=== PATIENT | male | born 1985 | race African-American/Black ===

== ENCOUNTER 2020-07-07 20:52 | Inpatient (IN) | payer MEDICAID ==
[~2020-07-07] VITALS: Ht 195.6 cm; Wt 80.0 kg
--- NOTE | 2020-07-07 21:17 | NUR ---
PT BIB EMS FOR SOB, WEAKNESS, AND ABD PAIN. PT STATES FOR THE PAST 3-4 WEEKS HAS BEEN INCREASINGLY WEEK AND UNABLE TO GET UP OFF OF THE COUCH. PT REPORTS USING METH EVERYDAY "USUALLY THAT HELPS ME FEEL BETTER BUT IT HASNT BEEN WORKING". PT ALSO REPORTS THAT HE IS SUPPOSED TO BE TAKING COUMADIN BUT NOT SURE WHAT FOR. HE SAYS HIS COUMADIN WAS STOLEN A COUPLE WEEKS AGO. EKG COMPLETE. MD IS BEDSIDE FOR ASSESSMENT. PT CONNECTED TO ALL MONITORING EQUIPMENT
[2020-07-07] MEDS ORDERED: ONDANSETRON 2MG/ML, 2ML ONE (21:22)
[2020-07-07] MEDS ORDERED: MORPHINE SULFATE 4 MG/ML, 1ML ONE ×2 (21:22→23:48)
[2020-07-07] MEDS ORDERED: SODIUM CHLORIDE FLUSH 10ML SYR IVF ONE (21:30)
[2020-07-07] MEDS ORDERED: ONDANSETRON 2MG/ML, 2ML IVPush ONE (21:30)
[2020-07-07] MEDS ORDERED: LORazepam 2 MG/ML, 1ML IVPush ONE (21:30)
[2020-07-07] MEDS ORDERED: SODIUM CHLORIDE 0.9% 1,000ML IVBOLUS ONE ×2 (21:30→22:00)
[2020-07-07] MEDS: MORPHINE SULFATE 4 MG/ML, 1ML IVPush PRN ×2 (21:50→23:55)
[2020-07-07 21:51] LABS: BASOPHILS % (AUTO) 0 % (0-1); EOSINOPHILS % (AUTO) 0 % (1-7); LYMPHOCYTES % (AUTO) 12 % (22-44); MEAN CORPUSCULAR HEMOGLOBIN 30.5 pg (27.5-34.5); MEAN CORPUSCULAR HGB CONC 31.7 g/dL (33.2-36.2); MEAN PLATELET VOLUME 8.2 fL (7.4-10.4); MONOCYTES % (AUTO) 5 % (2-9); NEUTROPHILS % (AUTO) 82 % (42-75); PLATELET COUNT 235 x10^3/uL (130-400); RED BLOOD COUNT 4.14 x10^6/uL (4.38-5.82)
[2020-07-07 21:52] LABS: MD NO
[2020-07-07] MEDS ORDERED: CEFTRIAXONE PMX 1GM/50ML 50 ML IVPB ONE (22:00)
[2020-07-07] MEDS ORDERED: AZITHROMYCIN 500 MG in SODIUM CHLORIDE 0.9% 250 ML IV ONE (22:00)
[2020-07-07 22:04] LABS: ALANINE AMINOTRANSFERASE 22 U/L (12-78); ALBUMIN 1.9 g/dL (3.4-5.0); ANION GAP 9 mmol/L (5-15); CALCIUM 8.5 mg/dL (8.5-10.1); CHLORIDE 101 mmol/L (98-107); INTERNATIONAL NORMALIZED RATIO 1.44 (0.93-1.1); PROTHROMBIN TIME 15.3 Seconds (9.6-11.5)
[2020-07-07 22:09] LABS: ALKALINE PHOSPHATASE 88 U/L (45-117); BILIRUBIN,TOTAL 4.5 mg/dL (0.2-1.0); TOTAL PROTEIN 7.6 g/dL (6.4-8.2)
[2020-07-07] MEDS ORDERED: OMNIPAQUE 350 MG/ML, 100ML BOTTLE ONE (22:43)
[2020-07-07] MEDS ORDERED: CEFTRIAXONE PMX 1GM/50ML 50 ML ONE (22:48)
[2020-07-07] MEDS ORDERED: ASPIRIN 325 MG TABLET ONE (22:58)
[2020-07-07] MEDS ORDERED: ASPIRIN 325 MG TABLET PO ONE (23:00)
[2020-07-07] MEDS ORDERED: FUROSEMIDE 40 MG/4 ML IV ONE (23:30)
[2020-07-07] MEDS ORDERED: HEPARIN 25,000 UNITS/250ML PMX 250 ML IV PRN (23:30)
[2020-07-07] MEDS ORDERED: HEPARIN 5,000 UNITS/ML, 1ML IV ONE (23:30)
--- NOTE | 2020-07-08 00:06 | NUR ---
Pt with sudden and sharp abd pain. Pt with sudden diaphoresis and yelling in pain. Dr Damon to bedside to evaluate patient. Pt remains tachycardic, trending down BP, requiring increased O2. Dr Damon and Dr Johns at bedside to evaluate patient. Dr Damon discussed intubation, central line, and thoracentesis with patient. Pt A&O x 4, in decision making capacity, , and gave verbal consent for procedure. Pt to trauma room, and report given to Adam CONNER for procedure.
[2020-07-08] MEDS ORDERED: PROMETHAZINE 25 MG/ML, 1ML IM PRN (00:30)
[2020-07-08] MEDS ORDERED: ONDANSETRON ODT 4 MG PO PRN (00:30)
[2020-07-08] MEDS ORDERED: hydrALAzine 20 MG/ML, 1ML IVPush PRN (00:30)
[2020-07-08] MEDS ORDERED: morphine SULFATE 10 MG/ML, 1ML IVPush PRN (00:30)
[2020-07-08] MEDS ORDERED: DOCUSATE 100 MG CAPSULE PO PRN (00:30)
[2020-07-08] MEDS ORDERED: POLYETHYLENE GLYCOL 17 GM PACKET PO PRN (00:30)
[2020-07-08] MEDS ORDERED: OXYcodone IR 5MG TABLET PO PRN (00:30)
[2020-07-08] MEDS ORDERED: BISACODYL 10 MG SUPP PR PRN (00:30)
[2020-07-08] MEDS ORDERED: ONDANSETRON 2MG/ML, 2ML IVPush PRN (00:30)
[2020-07-08] MEDS ORDERED: ALTEPLASE 1 ML ONE (00:32)
[2020-07-08] MEDS ORDERED: HEPARIN 5,000 UNITS/ML, 1ML ONE (00:36)
[2020-07-08 00:51] LABS: FREE T4 (FREE THYROXINE) 1.27 ng/dL (0.76-1.46)
--- NOTE | 2020-07-08 00:55 | NUR ---
Late entry (2199) Pt states feeling better after morphine, pain down to 4/10 in abd. Denies feeling nausated. Pt A&O x 4. Pt states no difficulty breathing. Pt remains tachycardic. Will continue to monitor. Sepsis protocol being followed.
[2020-07-08] MEDS ORDERED: EPINEPHRINE 5 MG in SODIUM CHLORIDE 0.9% 245 ML IV PRN (01:00)
--- NOTE | 2020-07-08 01:04 | NUR ---
yaya rn: pt intubated with 8.0 with 26 at the lip, pt coded at 0020 see code sheet. central line placed at 0040, 1L ns infused, muhammad placed and tpa mixed at bs.
[2020-07-08] MEDS ORDERED: CODE BLUE RESPONSE XX ONE ×2 (01:15→02:55)
[2020-07-08] MEDS ORDERED: DOBUTAMINE/D5W PMX 250 MG/250 ML ONE (01:15)
[2020-07-08 01:30] LABS: PH, VENOUS 6.929 pH (7.320-7.420)
[2020-07-08] MEDS ORDERED: DOBUTAMINE/D5W PMX 250 ML IV PRN (01:30)
[2020-07-08] MEDS ORDERED: NOREPINEPHRINE 8 MG in SODIUM CHLORIDE 0.9% 242 ML IV PRN (01:30)
[2020-07-08] MEDS ORDERED: ALTEPLASE 100 MG in BAG 1 EACH IV ONE (01:30)
[2020-07-08 01:45] LABS: ANION GAP 17 mmol/L (5-15); CALCIUM 6.9 mg/dL (8.5-10.1); CHLORIDE 108 mmol/L (98-107)
--- NOTE | 2020-07-08 01:48 | NUR ---
Report to [facility] Glass pipe for drug use, wasted in sharps with valentín garcia. White powdery substance wasted in sharps with [facility]. Pipe in sharps container. One large knife, one pocket knife sent to security for storage. NITIN titus, Fabio titus no U[facility] hospitalist aware.
[2020-07-08 01:50] VITALS: BP 127/89
--- NOTE | 2020-07-08 02:00 | NUR ---
Tx on monitor tech with EMT, RT, RN b/p upon tx 123/82 HR 118, Sinus no ectopy. Remains on no sedation, non responsive.
[2020-07-08] MEDS ORDERED: EPINEPHRINE 10 MG in SODIUM CHLORIDE 0.9% 240 ML IV PRN (02:14)
[2020-07-08] MEDS ORDERED: SODIUM BICARB 8.4%, 50ML SYRINGE ONE (02:35)
[2020-07-08] MEDS ORDERED: VASOPRESSIN 20 UNIT/ML, 1ML ONE (02:55)
[2020-07-08] MEDS ORDERED: FAMOTIDINE 20 MG/2 ML IVPush SCH (09:00)
[2020-07-08] MEDS ORDERED: ATROPINE SYRINGE 0.1 MG/ML, 10ML ONE (10:09)
[2020-07-08] MEDS ORDERED: SODIUM BICARB 7.5%, 50ML SYRINGE ONE (10:09)
[2020-07-08] MEDS ORDERED: EPINEPHRINE SYRINGE 0.1 MG/ML, 10ML ONE (10:09)
[2020-07-08] MEDS ORDERED: ETOMIDATE 20 MG/10 ML ONE (10:12)
[2020-07-08] MEDS ORDERED: PROPOFOL 10 MG/ML, 100ML IV ONE (10:12)
[2020-07-08] MEDS ORDERED: SUCCINYLCHOLINE 20 MG/ML, 10ML ONE (10:12)
[2020-07-08] MEDS ORDERED: ROCURONIUM 10MG/ML,5ML ONE (10:12)
[2020-07-08] MEDS ORDERED: VECURONIUM 10 MG ONE (10:12)
[2020-07-08] MEDS ORDERED: AZITHROMYCIN 500 MG in SODIUM CHLORIDE 0.9% 250 ML IV SCH (21:00)
[2020-07-08] MEDS ORDERED: CEFTRIAXONE PMX 2GM/50ML 50 ML IVPB SCH (21:00)
== END 2020-07-08 05:50 | disposition expired | DRG 917 ==
LOC: ED 21:52 → EDIP 07-08 00:20 → CCU 07-08 02:08
PROVIDERS: ADMIT Internal Medicine; ATTEND Hospitalist
PROC: 5A1935Z Respiratory Ventilation, Less than 24 Consecutive Hours (ICD-10-PCS; principal; 2020-07-08)
PROC: 0BH17EZ Insertion of Endotracheal Airway into Trachea, Via Natural or Artificial Opening (ICD-10-PCS; 2020-07-08)
PROC: 02HV33Z Insertion of Infusion Device into Superior Vena Cava, Percutaneous Approach (ICD-10-PCS; 2020-07-08)
PROC: B548ZZA Ultrasonography of Superior Vena Cava, Guidance (ICD-10-PCS; 2020-07-08)
PROC: 5A12012 Performance of Cardiac Output, Single, Manual (ICD-10-PCS; 2020-07-08)
PROC: 3E03317 Introduction of Other Thrombolytic into Peripheral Vein, Percutaneous Approach (ICD-10-PCS; 2020-07-08)
DX: T43.621A Poisoning by amphetamines, accidental (unintentional), initial encounter (principal); I26.09 Other pulmonary embolism with acute cor pulmonale; I21.4 Non-ST elevation (NSTEMI) myocardial infarction; J96.01 Acute respiratory failure with hypoxia; I50.23 Acute on chronic systolic (congestive) heart failure; R18.8 Other ascites; E87.2 Acidosis; I42.7 Cardiomyopathy due to drug and external agent; Z99.11 Dependence on respirator [ventilator] status; I42.0 Dilated cardiomyopathy; K76.0 Fatty (change of) liver, not elsewhere classified; I46.9 Cardiac arrest, cause unspecified; R57.0 Cardiogenic shock; F15.10 Other stimulant abuse, uncomplicated; E87.5 Hyperkalemia; R00.1 Bradycardia, unspecified; F17.200 Nicotine dependence, unspecified, uncomplicated; Z86.73 Personal history of transient ischemic attack (TIA), and cerebral infarction without residual deficits; Z91.14 Patient's other noncompliance with medication regimen; Z79.01 Long term (current) use of anticoagulants; Y92.89 Other specified places as the place of occurrence of the external cause; Z79.899 Other long term (current) drug therapy
CPT/HCPCS: 36415; 71045; 71275; 74177; 80048; 80053; 80320; 82803; 83036; 83605; 83690; 83735; 83880; 84145; 84439; 84443; 84484; 85025; 85520; 85610; 85730; 87040; 87070; 87081; 87205; 92950; 93005; 94002; 94003; 96374; 99292; G0378; J0456; J0461; J0696; J1644; J2405; J2704; J2997; Q9967; G0480; J0330; J1250; J2270; J7030; J7050